=== PATIENT | female | born 1940 | race Caucasian/White ===

== ENCOUNTER 2018-01-29 15:15 | Inpatient (IN) ==
[2018-01-29] MEDS ORDERED: THIAMINE INJ 100 MG, FOLIC ACID INJ 1 MG, MAGNESIUM SULF INJ 2 GM, MULTIVITAMIN INJ 10 ... IV ONE (17:11)
[2018-01-29] MEDS ORDERED: SODIUM CHLORIDE 0.9% 1,000 ML IV STA (17:11)
[2018-01-29 17:28] LABS: Basophils % 0.1 % (0.0-0.8); Hematocrit 29.9 VOL% (35.7-47.0); Hemoglobin 9.7 GM/DL (12.0-16.0); Immature Granulocytes % 1.2 %; Immature Granulocytes Absolute 0.11 #; Lymphocytes # 0.4 10*3/uL (1.4-4.0); Lymphocytes % 4.6 % (21.3-54.2); Mean Corpuscular HGB Conc 32.4 GM/DL (32-36); Mean Corpuscular Hemoglobin 25 PG (27-34); Mean Corpuscular Volume 76.3 FL (87-102); Mean Platelet Volume 11.3 FL (9.6-12.0); Monocytes # 0.2 10*3/uL (0.11-0.8); Monocytes % 1.7 % (1.7-12.7); Neutrophils # 8.3 10*3/uL (1.4-7.4); Neutrophils % 92.4 % (38.7-73.9); Platelet Count 100 T/CUMM (130-400); Red Blood Count 3.92 MC/CUMM (3.8-5.5)
[2018-01-29 17:38] LABS: INR 1.3; PT Patient Result 13.8 SECS
[2018-01-29 17:50] LABS: Albumin 2.7 G/DL (3.4-5.0); Calcium 8.4 MG/DL (8.5-10.1); Osmolality,Calculated 259.2 MOS/KG (273-304); Potassium 4.2 MMOL/L (3.5-5.1); Total Protein 6.1 G/DL (6.4-8.3)
[2018-01-29 18:13] LABS: Band Neutrophils 1 % (0-10); Lymphocytes 4 % (20-55); Segmented Neutrophils 95 % (50-85); Total Cells Counted 100
[2018-01-29 18:14] LABS: Anisocytosis 1+; Ovalocytes 2+; Poikilocytosis 1+
[2018-01-29 18:15] LABS: Platelet Estimate Adequate; Schistocytes Few
[2018-01-29] MEDS ORDERED: ONDANSETRON 4 MG/2 ML VIAL IV PRN (18:21)
[2018-01-29] MEDS ORDERED: LACTULOSE 20 GM/30 ML UDCUP PO STA (18:24)
[2018-01-29] MEDS ORDERED: GLUCAGON 1 MG VIAL IM PRN (18:28)
[2018-01-29] MEDS ORDERED: DEXTROSE 50% 25 GM/50 ML VIAL IV PRN (18:28)
[2018-01-29] MEDS ORDERED: LACTULOSE 20 GM/30 ML UDCUP ONE (18:38)
[2018-01-29] MEDS ORDERED: ALUM/MAG/SIMETH/LIDO VISC 1:1 30 ML BOTTLE PO ONE (18:42)
[2018-01-29] MEDS ORDERED: MORPHINE 4 MG/1 ML VIAL ONE (18:42)
[2018-01-29] MEDS ORDERED: ASPIRIN 325 MG TABLET ONE (18:42)
[2018-01-29] MEDS ORDERED: traMADol 50 MG TABLET PO PRN (19:20)
[2018-01-29] MEDS: FAMCICLOVIR 250 MG TABLET PO SCH (20:40)
[2018-01-29] MEDS: INSULIN REGULAR 100 UNIT/ML SUBCUT SCH (20:40)
[2018-01-29] MEDS: SPIRONOLACTONE 50 MG TABLET PO SCH (20:40)
[2018-01-29 21:57] LABS: Apearance,Urine CLEAR (Clear); Bacteria,Urine Occasional /HPF (Few); Bilirubin,Urine Negative (Negative); Blood, Urine Negative (Negative); Glucose,Urine (UA) Negative (Negative); Ketones,Urine Negative (Negative); Mucus,Urine Occasional /LPF (Occasional); Nitrite,Urine Negative (Negative); Protein,Urine Negative; RBC,Urine <1 /HPF (0-4); Squamous Epithelial Cell,Urine Occasional /HPF (0-10); Urine Color Yellow (Yellow); Urine Specific Gravity 1.008 (1.001-1.035); WBC,Urine <1 /HPF (0-6)
[2018-01-30 05:42] LABS: Albumin 2.5 G/DL (3.4-5.0); Calcium 8.2 MG/DL (8.5-10.1); Osmolality,Calculated 264.7 MOS/KG (273-304); Potassium 4.7 MMOL/L (3.5-5.1); Total Protein 5.3 G/DL (6.4-8.3)
[2018-01-30 05:45] LABS: Basophils % 0.1 % (0.0-0.8); Hematocrit 28.6 VOL% (35.7-47.0); Hemoglobin 9.2 GM/DL (12.0-16.0); Immature Granulocytes % 0.8 %; Immature Granulocytes Absolute 0.07 #; Lymphocytes # 0.7 10*3/uL (1.4-4.0); Lymphocytes % 8.6 % (21.3-54.2); Mean Corpuscular HGB Conc 32.2 GM/DL (32-36); Mean Corpuscular Hemoglobin 25 PG (27-34); Mean Corpuscular Volume 78.6 FL (87-102); Mean Platelet Volume 11.7 FL (9.6-12.0); Monocytes # 0.7 10*3/uL (0.11-0.8); Monocytes % 8.2 % (1.7-12.7); Neutrophils # 7.1 10*3/uL (1.4-7.4); Neutrophils % 82.3 % (38.7-73.9); Red Blood Count 3.64 MC/CUMM (3.8-5.5); Red Cell Distribution Width 20.7 % (9.3-17.3); White Blood Count 8.6 T/CUMM (4-12)
[2018-01-30 05:54] LABS: Platelet Count 75 T/CUMM (130-400)
[2018-01-30] MEDS: SODIUM CHLORIDE 0.9% 1,000 ML IV SCH ×3 (06:02→19:50)
[2018-01-30 06:08] LABS: Burr Cells Slight; Elliptocytes 1+; Hypochromasia 2+; Macrocytosis 1+
[2018-01-30] MEDS: INSULIN REGULAR 100 UNIT/ML SUBCUT SCH ×4 (07:58→20:46)
[2018-01-30] MEDS: predniSONE 20 MG TABLET PO SCH (08:48)
[2018-01-30] MEDS: SPIRONOLACTONE 50 MG TABLET PO SCH ×2 (08:48→20:40)
[2018-01-30] MEDS: PANTOPRAZOLE 40 MG TABLET PO SCH (08:48)
[2018-01-30] MEDS: FAMCICLOVIR 250 MG TABLET PO SCH ×3 (08:48→20:40)
[2018-01-30] MEDS: LEVOTHYROXINE 75 MCG TABLET PO SCH (08:48)
[2018-01-30] MEDS ORDERED: LACTULOSE 20 GM/30 ML UDCUP PO SCH (09:00)
[2018-01-30] MEDS ORDERED: GABAPENTIN 300 MG CAPSULE PO SCH (09:00)
[2018-01-30] MEDS ORDERED: PANTOPRAZOLE 40 MG TABLET PO SCH (09:00)
[2018-01-30] MEDS: MORPHINE 4 MG/1 ML VIAL IV PRN (19:03)
[2018-01-30] MEDS: LACTULOSE 20 GM/30 ML UDCUP PO SCH (20:40)
[2018-01-31 05:04] LABS: Basophils % 0.1 % (0.0-0.8); Eosinophils % 0.1 % (0.00-10.9); Hematocrit 22.6 VOL% (35.7-47.0); Immature Granulocytes % 1.1 %; Immature Granulocytes Absolute 0.19 #; Lymphocytes # 1.4 10*3/uL (1.4-4.0); Lymphocytes % 8.2 % (21.3-54.2); Mean Corpuscular HGB Conc 31.4 GM/DL (32-36); Mean Corpuscular Hemoglobin 25 PG (27-34); Mean Platelet Volume 11.4 FL (9.6-12.0); Monocytes % 11.3 % (1.7-12.7); Neutrophils # 13.9 10*3/uL (1.4-7.4); Neutrophils % 79.2 % (38.7-73.9); Platelet Count 87 T/CUMM (130-400); Red Blood Count 2.86 MC/CUMM (3.8-5.5); Red Cell Distribution Width 21.4 % (9.3-17.3); White Blood Count 17.6 T/CUMM (4-12)
[2018-01-31 05:08] LABS: Hemoglobin 7.1 GM/DL (12.0-16.0)
[2018-01-31 05:24] LABS: Microcytosis 1+
[2018-01-31 05:25] LABS: Anisocytosis 1+; Hypochromasia 1+; Ovalocytes Few; Platelet Estimate Decreased; Polychromasia Slight
[2018-01-31 05:45] LABS: Bilirubin,Total 2.3 MG/DL (0.2-1.0); Calcium 7.5 MG/DL (8.5-10.1); Osmolality,Calculated 268.5 MOS/KG (273-304); Potassium 5.3 MMOL/L (3.5-5.1); Total Protein 4.4 G/DL (6.4-8.3)
[2018-01-31] MEDS: LEVOTHYROXINE 75 MCG TABLET PO SCH (06:10)
[2018-01-31] MEDS ORDERED: SODIUM CHLORIDE 0.9% 1,000 ML IV PRN ×2 (06:53→09:29)
[2018-01-31] MEDS: INSULIN REGULAR 100 UNIT/ML SUBCUT SCH ×4 (07:46→21:01)
[2018-01-31] MEDS: predniSONE 20 MG TABLET PO SCH (08:43)
[2018-01-31] MEDS: PANTOPRAZOLE 40 MG TABLET PO SCH (08:43)
[2018-01-31] MEDS: FAMCICLOVIR 250 MG TABLET PO SCH ×3 (08:43→20:46)
[2018-01-31] MEDS: LACTULOSE 20 GM/30 ML UDCUP PO SCH ×2 (08:44→20:46)
[2018-01-31] MEDS: LIDOCAINE 5% PATCH TRANSDERM SCH (08:44)
[2018-01-31] MEDS ORDERED: ETOMIDATE 20 MG/10 ML VIAL IV ONE (10:44)
[2018-01-31] MEDS ORDERED: LIDOCAINE 1% 5 ML VIAL ONE (10:44)
[2018-01-31] MEDS ORDERED: fentaNYL 100 MCG/2 ML VIAL IV ONE (11:25)
[2018-01-31] MEDS ORDERED: fentaNYL 100 MCG/2 ML VIAL ONE (11:30)
[2018-01-31] MEDS: LACTULOSE 160 GM/240 ML BOTTLE RECTAL ONE ×2 (12:05→15:50)
[2018-01-31 13:10] LABS: Hemoglobin 7.6 GM/DL (12.0-16.0)
[2018-01-31] MEDS: SODIUM CHLORIDE 0.9% 1,000 ML IV SCH (13:15)
[2018-01-31] MEDS: PANTOPRAZOLE 40 MG VIAL IV SCH ×2 (13:15→20:46)
[2018-01-31] MEDS: LEVOFLOXACIN INJ 500 MG in PREMIX 1 EACH IV SCH (13:21)
[2018-01-31] MEDS: OCTREOTIDE 500 MCG in SODIUM CHLORIDE 0.9% 99 ML IV SCH (13:45)
[2018-01-31] MEDS: MORPHINE 4 MG/1 ML VIAL IV PRN (21:10)
[2018-01-31 23:06] LABS: Hematocrit 31.7 VOL% (35.7-47.0); Hemoglobin 10.3 GM/DL (12.0-16.0)
[2018-02-01] MEDS: OCTREOTIDE 500 MCG in SODIUM CHLORIDE 0.9% 99 ML IV SCH ×3 (00:45→19:23)
[2018-02-01] MEDS: SODIUM CHLORIDE 0.9% 1,000 ML IV SCH ×2 (03:00→12:30)
[2018-02-01] MEDS: MORPHINE 4 MG/1 ML VIAL IV PRN (03:13)
[2018-02-01 04:45] LABS: Basophils # 0.1 10*3/uL (0.0-0.2); Basophils % 0.4 % (0.0-0.8); Eosinophils % 0.1 % (0.00-10.9); Hematocrit 32.4 VOL% (35.7-47.0); Hemoglobin 10.4 GM/DL (12.0-16.0); Immature Granulocytes % 4.7 %; Immature Granulocytes Absolute 0.97 #; Lymphocytes # 2.6 10*3/uL (1.4-4.0); Lymphocytes % 12.4 % (21.3-54.2); Mean Corpuscular HGB Conc 32.1 GM/DL (32-36); Mean Corpuscular Hemoglobin 27 PG (27-34); Mean Corpuscular Volume 83.1 FL (87-102); Mean Platelet Volume 11.7 FL (9.6-12.0); Monocytes # 2.1 10*3/uL (0.11-0.8); Monocytes % 10.1 % (1.7-12.7); NRBC # 0.06 10*3/uL; Neutrophils # 14.8 10*3/uL (1.4-7.4); Neutrophils % 72.3 % (38.7-73.9); Platelet Count 102 T/CUMM (130-400); Red Cell Distribution Width 19.9 % (9.3-17.3); White Blood Count 20.6 T/CUMM (4-12)
[2018-02-01 05:17] LABS: Albumin 2.4 G/DL (3.4-5.0); Bilirubin,Total 3.7 MG/DL (0.2-1.0); Calcium 8.1 MG/DL (8.5-10.1); Osmolality,Calculated 277.2 MOS/KG (273-304); Potassium 4.8 MMOL/L (3.5-5.1); Total Protein 5.1 G/DL (6.4-8.3)
[2018-02-01] MEDS: LEVOTHYROXINE 75 MCG TABLET PO SCH (06:38)
[2018-02-01 07:12] LABS: Acanthocytes Few; Band Neutrophils 7 % (0-10); Elliptocytes 1+; Hypochromasia 1+; Lymphocytes 8 % (20-55); Platelet Estimate Decreased; Segmented Neutrophils 81 % (50-85); Total Cells Counted 100
[2018-02-01] MEDS: INSULIN REGULAR 100 UNIT/ML SUBCUT SCH ×4 (08:13→20:30)
[2018-02-01] MEDS: LACTULOSE 20 GM/30 ML UDCUP PO SCH ×2 (08:45→20:31)
[2018-02-01] MEDS: FAMCICLOVIR 250 MG TABLET PO SCH ×3 (09:00→20:31)
[2018-02-01] MEDS: predniSONE 20 MG TABLET PO SCH (09:00)
[2018-02-01] MEDS: LIDOCAINE 5% PATCH TRANSDERM SCH (09:01)
[2018-02-01] MEDS: PANTOPRAZOLE 40 MG VIAL IV SCH ×2 (09:09→20:28)
[2018-02-01] MEDS ORDERED: LACTULOSE 160 GM/240 ML BOTTLE RECTAL PRN (09:24)
[2018-02-01] MEDS ORDERED: SODIUM CHLORIDE 0.9% 500 ML IV ONE (09:26)
[2018-02-01 09:52] LABS: Basophils # 0.1 10*3/uL (0.0-0.2); Basophils % 0.5 % (0.0-0.8); Eosinophils # 0.1 10*3/uL (0.0-0.87); Eosinophils % 0.4 % (0.00-10.9); Hemoglobin 11.3 GM/DL (12.0-16.0); Immature Granulocytes % 5.7 %; Immature Granulocytes Absolute 1.16 #; Lymphocytes # 2.7 10*3/uL (1.4-4.0); Lymphocytes % 13.2 % (21.3-54.2); Mean Corpuscular HGB Conc 33.2 GM/DL (32-36); Mean Corpuscular Hemoglobin 27 PG (27-34); Mean Corpuscular Volume 81.3 FL (87-102); Mean Platelet Volume 12.1 FL (9.6-12.0); Monocytes % 9.7 % (1.7-12.7); NRBC # 0.15 10*3/uL; Neutrophils # 14.4 10*3/uL (1.4-7.4); Neutrophils % 70.5 % (38.7-73.9); Platelet Count 108 T/CUMM (130-400); Red Blood Count 4.18 MC/CUMM (3.8-5.5); White Blood Count 20.5 T/CUMM (4-12)
[2018-02-01 10:53] LABS: Burr Cells 2+; Eosinophils 1 % (0-10); Lymphocytes 8 % (20-55); Macrocytosis 1+; Nucleated Red Blood Cells 2 (0-5); Polychromasia Slight; Segmented Neutrophils 84 % (50-85); Target Cells 1+; Total Cells Counted 100
[2018-02-01 10:54] LABS: Elliptocytes Few; Platelet Estimate Decreased
[2018-02-01 12:39] LABS: Hematocrit 34.1 VOL% (35.7-47.0); Hemoglobin 10.9 GM/DL (12.0-16.0)
[2018-02-01] MEDS: LEVOFLOXACIN INJ 500 MG in PREMIX 1 EACH IV SCH (13:11)
[2018-02-01] MEDS: PROPRANOLOL 10 MG TABLET PO SCH ×2 (14:36→20:31)
[2018-02-01 15:06] LABS: Apearance,Urine CLEAR (Clear); Bilirubin,Urine Negative (Negative); Blood, Urine Negative (Negative); Glucose,Urine (UA) Negative (Negative); Ketones,Urine Negative (Negative); Mucus,Urine Few /LPF (Occasional); Nitrite,Urine Negative (Negative); Protein,Urine Negative; RBC,Urine 2 /HPF (0-4); Squamous Epithelial Cell,Urine Occasional /HPF (0-10); Urine Color Amber (Yellow); Urine Specific Gravity 1.028 (1.001-1.035); WBC,Urine 2 /HPF (0-6)
[2018-02-01] MEDS: METOPROLOL TARTRATE 5 MG/5 ML VIAL IV SCH (17:08)
[2018-02-01] MEDS: LACTULOSE 160 GM/240 ML BOTTLE RECTAL SCH (17:22)
[2018-02-01 20:31] LABS: Hematocrit 30.6 VOL% (35.7-47.0); Hemoglobin 10.5 GM/DL (12.0-16.0)
[2018-02-02] MEDS: METOPROLOL TARTRATE 5 MG/5 ML VIAL IV SCH ×4 (01:21→17:04)
[2018-02-02] MEDS: LACTULOSE 160 GM/240 ML BOTTLE RECTAL SCH ×5 (01:21→23:13)
[2018-02-02] MEDS: SODIUM CHLORIDE 0.9% 1,000 ML IV SCH ×3 (03:48→20:33)
[2018-02-02] MEDS: LEVOTHYROXINE 75 MCG TABLET PO SCH (05:57)
[2018-02-02 06:34] LABS: Basophils % 0.3 % (0.0-0.8); Eosinophils # 0.1 10*3/uL (0.0-0.87); Eosinophils % 0.8 % (0.00-10.9); Hematocrit 28.9 VOL% (35.7-47.0); Hemoglobin 9.6 GM/DL (12.0-16.0); Immature Granulocytes Absolute 0.47 #; Lymphocytes # 1.5 10*3/uL (1.4-4.0); Lymphocytes % 12.7 % (21.3-54.2); Mean Corpuscular HGB Conc 33.2 GM/DL (32-36); Mean Corpuscular Hemoglobin 27 PG (27-34); Mean Corpuscular Volume 81.2 FL (87-102); Monocytes # 0.9 10*3/uL (0.11-0.8); Monocytes % 7.8 % (1.7-12.7); NRBC # 0.08 10*3/uL; Neutrophils # 8.8 10*3/uL (1.4-7.4); Neutrophils % 74.4 % (38.7-73.9); Platelet Count 59 T/CUMM (130-400); Red Blood Count 3.56 MC/CUMM (3.8-5.5); Red Cell Distribution Width 19.8 % (9.3-17.3); White Blood Count 11.8 T/CUMM (4-12)
[2018-02-02 06:55] LABS: Albumin 2.2 G/DL (3.4-5.0); Bilirubin,Total 3.3 MG/DL (0.2-1.0); Calcium 7.8 MG/DL (8.5-10.1); Osmolality,Calculated 281.8 MOS/KG (273-304); Potassium 3.8 MMOL/L (3.5-5.1); Total Protein 4.5 G/DL (6.4-8.3)
[2018-02-02] MEDS: INSULIN REGULAR 100 UNIT/ML SUBCUT SCH ×4 (08:27→21:06)
[2018-02-02] MEDS: PANTOPRAZOLE 40 MG VIAL IV SCH ×2 (08:55→20:31)
[2018-02-02] MEDS: OCTREOTIDE 500 MCG in SODIUM CHLORIDE 0.9% 99 ML IV SCH (08:55)
[2018-02-02] MEDS: LIDOCAINE 5% PATCH TRANSDERM SCH (08:55)
[2018-02-02] MEDS: FAMCICLOVIR 250 MG TABLET PO SCH ×3 (09:07→20:26)
[2018-02-02] MEDS: LACTULOSE 20 GM/30 ML UDCUP PO SCH ×2 (09:07→21:05)
[2018-02-02] MEDS: PROPRANOLOL 10 MG TABLET PO SCH ×3 (09:08→20:29)
[2018-02-02] MEDS: predniSONE 20 MG TABLET PO SCH (09:08)
[2018-02-02 11:21] LABS: Elliptocytes 2+; Hypochromasia 1+; Macrocytosis 1+; Polychromasia Slight
[2018-02-02] MEDS: LEVOFLOXACIN INJ 500 MG in PREMIX 1 EACH IV SCH (12:06)
[2018-02-02 13:08] LABS: Hematocrit 27.7 VOL% (35.7-47.0); Hemoglobin 9.1 GM/DL (12.0-16.0)
[2018-02-02 21:12] LABS: Hematocrit 29.2 VOL% (35.7-47.0); Hemoglobin 9.5 GM/DL (12.0-16.0)
[2018-02-03] MEDS: METOPROLOL TARTRATE 5 MG/5 ML VIAL IV SCH ×5 (00:53→23:45)
[2018-02-03] MEDS: OCTREOTIDE 500 MCG in SODIUM CHLORIDE 0.9% 99 ML IV SCH ×3 (00:58→08:42)
[2018-02-03 05:08] LABS: Basophils % 0.2 % (0.0-0.8); Eosinophils # 0.2 10*3/uL (0.0-0.87); Eosinophils % 1.7 % (0.00-10.9); Hematocrit 27.8 VOL% (35.7-47.0); Hemoglobin 9.2 GM/DL (12.0-16.0); Immature Granulocytes Absolute 0.31 #; Lymphocytes # 1.6 10*3/uL (1.4-4.0); Lymphocytes % 15.1 % (21.3-54.2); Mean Corpuscular HGB Conc 33.1 GM/DL (32-36); Mean Corpuscular Hemoglobin 27 PG (27-34); Mean Corpuscular Volume 81.8 FL (87-102); Mean Platelet Volume 11.7 FL (9.6-12.0); Monocytes # 0.8 10*3/uL (0.11-0.8); Monocytes % 7.7 % (1.7-12.7); NRBC # 0.03 10*3/uL; Neutrophils # 7.5 10*3/uL (1.4-7.4); Neutrophils % 72.3 % (38.7-73.9); Red Cell Distribution Width 20.3 % (9.3-17.3); White Blood Count 10.3 T/CUMM (4-12)
[2018-02-03 05:12] LABS: Platelet Count 67 T/CUMM (130-400)
[2018-02-03 05:30] LABS: Band Neutrophils 2 % (0-10); Eosinophils 1 % (0-10); Giant Platelets Few; Hypochromasia 1+; Lymphocytes 11 % (20-55); Ovalocytes Slight; Platelet Estimate Decreased; Segmented Neutrophils 81 % (50-85); Total Cells Counted 100
[2018-02-03 05:31] LABS: Macrocytosis Slight; Polychromasia Slight
[2018-02-03] MEDS: LACTULOSE 160 GM/240 ML BOTTLE RECTAL SCH ×2 (05:43→11:02)
[2018-02-03] MEDS: SODIUM CHLORIDE 0.9% 1,000 ML IV SCH ×3 (05:45→16:16)
[2018-02-03 05:50] LABS: Bilirubin,Direct 1.17 MG/DL (0.0-0.20); Bilirubin,Indirect 1.4 MG/DL (0.0-1.0); Bilirubin,Total 2.6 MG/DL (0.2-1.0); Calcium 7.6 MG/DL (8.5-10.1); Osmolality,Calculated 288.3 MOS/KG (273-304); Potassium 3.8 MMOL/L (3.5-5.1); Total Protein 4.3 G/DL (6.4-8.3)
[2018-02-03] MEDS: LEVOTHYROXINE 75 MCG TABLET PO SCH (05:56)
[2018-02-03] MEDS: INSULIN REGULAR 100 UNIT/ML SUBCUT SCH ×4 (08:00→20:43)
[2018-02-03] MEDS: FAMCICLOVIR 250 MG TABLET PO SCH ×3 (08:37→20:33)
[2018-02-03] MEDS: PROPRANOLOL 10 MG TABLET PO SCH ×3 (08:37→20:58)
[2018-02-03] MEDS: predniSONE 20 MG TABLET PO SCH (08:37)
[2018-02-03] MEDS: LACTULOSE 20 GM/30 ML UDCUP PO SCH ×2 (08:38→20:32)
[2018-02-03] MEDS: PANTOPRAZOLE 40 MG VIAL IV SCH ×2 (08:45→20:32)
[2018-02-03] MEDS: LIDOCAINE 5% PATCH TRANSDERM SCH (08:47)
[2018-02-03] MEDS: LEVOFLOXACIN INJ 500 MG in PREMIX 1 EACH IV SCH (12:17)
[2018-02-03 13:14] LABS: Hematocrit 28.8 VOL% (35.7-47.0); Hemoglobin 9.3 GM/DL (12.0-16.0)
[2018-02-03 22:05] LABS: Hematocrit 30.3 VOL% (35.7-47.0); Hemoglobin 9.9 GM/DL (12.0-16.0)
[2018-02-04] MEDS: LEVOTHYROXINE 75 MCG TABLET PO SCH (06:05)
[2018-02-04] MEDS: SODIUM CHLORIDE 0.9% 1,000 ML IV SCH ×2 (06:05→21:20)
[2018-02-04] MEDS: METOPROLOL TARTRATE 5 MG/5 ML VIAL IV SCH ×3 (06:05→16:59)
[2018-02-04 06:57] LABS: Basophils % 0.2 % (0.0-0.8); Eosinophils # 0.1 10*3/uL (0.0-0.87); Hematocrit 27.9 VOL% (35.7-47.0); Immature Granulocytes % 2.2 %; Immature Granulocytes Absolute 0.28 #; Lymphocytes # 1.6 10*3/uL (1.4-4.0); Lymphocytes % 11.9 % (21.3-54.2); Mean Corpuscular HGB Conc 32.3 GM/DL (32-36); Mean Corpuscular Hemoglobin 27 PG (27-34); Mean Corpuscular Volume 84.5 FL (87-102); Mean Platelet Volume 11.5 FL (9.6-12.0); Monocytes # 1.2 10*3/uL (0.11-0.8); Monocytes % 9.1 % (1.7-12.7); Neutrophils # 9.8 10*3/uL (1.4-7.4); Neutrophils % 75.6 % (38.7-73.9); Platelet Count 80 T/CUMM (130-400); Red Cell Distribution Width 21.2 % (9.3-17.3)
[2018-02-04 07:18] LABS: Bilirubin,Direct 1.27 MG/DL (0.0-0.20); Bilirubin,Indirect 1.7 MG/DL (0.0-1.0); Calcium 7.4 MG/DL (8.5-10.1); Hypochromasia 1+; Osmolality,Calculated 281.8 MOS/KG (273-304); Ovalocytes Slight; Platelet Estimate Decreased; Potassium 4.1 MMOL/L (3.5-5.1); Total Protein 4.3 G/DL (6.4-8.3)
[2018-02-04 07:19] LABS: Macrocytosis Slight
[2018-02-04] MEDS: INSULIN REGULAR 100 UNIT/ML SUBCUT SCH ×2 (07:57→13:52)
[2018-02-04] MEDS: PROPRANOLOL 10 MG TABLET PO SCH ×2 (09:31→14:03)
[2018-02-04] MEDS: FAMCICLOVIR 250 MG TABLET PO SCH ×3 (09:37→21:19)
[2018-02-04] MEDS: LACTULOSE 20 GM/30 ML UDCUP PO SCH ×3 (09:37→21:19)
[2018-02-04] MEDS: PANTOPRAZOLE 40 MG VIAL IV SCH ×2 (09:38→21:19)
[2018-02-04] MEDS: LIDOCAINE 5% PATCH TRANSDERM SCH (09:38)
[2018-02-04] MEDS: predniSONE 20 MG TABLET PO SCH (09:38)
[2018-02-04] MEDS: LEVOFLOXACIN INJ 500 MG in PREMIX 1 EACH IV SCH (15:26)
[2018-02-04] MEDS ORDERED: TUBERCULIN SKIN TEST 0.1 ML SYRINGE INTRADERM ONE ×2 (15:37→18:30)
[2018-02-05 07:41] LABS: Basophils % 0.1 % (0.0-0.8); Eosinophils % 0.2 % (0.00-10.9); Hematocrit 31.1 VOL% (35.7-47.0); Hemoglobin 10.3 GM/DL (12.0-16.0); Immature Granulocytes % 1.7 %; Immature Granulocytes Absolute 0.28 #; Lymphocytes # 1.5 10*3/uL (1.4-4.0); Lymphocytes % 9.1 % (21.3-54.2); Mean Corpuscular HGB Conc 33.1 GM/DL (32-36); Mean Corpuscular Hemoglobin 27 PG (27-34); Mean Corpuscular Volume 82.7 FL (87-102); Mean Platelet Volume 10.7 FL (9.6-12.0); Monocytes # 1.4 10*3/uL (0.11-0.8); Monocytes % 8.8 % (1.7-12.7); Neutrophils # 12.9 10*3/uL (1.4-7.4); Neutrophils % 80.1 % (38.7-73.9); Red Blood Count 3.76 MC/CUMM (3.8-5.5); Red Cell Distribution Width 21.4 % (9.3-17.3); White Blood Count 16.2 T/CUMM (4-12)
[2018-02-05 07:51] LABS: Platelet Count 97 T/CUMM (130-400)
[2018-02-05] MEDS: LEVOTHYROXINE 75 MCG TABLET PO SCH ×2 (07:59→11:14)
[2018-02-05] MEDS: SODIUM CHLORIDE 0.9% 1,000 ML IV SCH ×2 (08:00→22:25)
[2018-02-05] MEDS: LACTULOSE 20 GM/30 ML UDCUP PO SCH ×4 (08:00→22:26)
[2018-02-05] MEDS: FAMCICLOVIR 250 MG TABLET PO SCH ×4 (08:00→22:26)
[2018-02-05] MEDS: LIDOCAINE 5% PATCH TRANSDERM SCH ×2 (08:00→11:15)
[2018-02-05] MEDS: predniSONE 20 MG TABLET PO SCH ×2 (08:00→11:14)
[2018-02-05] MEDS: PANTOPRAZOLE 40 MG VIAL IV SCH ×3 (08:01→22:21)
[2018-02-05 08:07] LABS: Calcium 7.9 MG/DL (8.5-10.1); Osmolality,Calculated 283.8 MOS/KG (273-304); Potassium 3.8 MMOL/L (3.5-5.1)
[2018-02-05 08:44] LABS: Elliptocytes 1+
[2018-02-05 08:45] LABS: Anisocytosis 1+; Platelet Estimate Decreased; Schistocytes Few
[2018-02-05 08:48] LABS: Polychromasia 1+
[2018-02-05 09:46] LABS: Acanthocytes Few
[2018-02-05] MEDS: LEVOFLOXACIN INJ 500 MG in PREMIX 1 EACH IV SCH (12:41)
[2018-02-05] MEDS ORDERED: ONDANSETRON ODT 4 MG TABLET PO PRN (18:02)
[2018-02-06] MEDS: LEVOTHYROXINE 75 MCG TABLET PO SCH (05:53)
[2018-02-06 07:02] LABS: Basophils # 0.1 10*3/uL (0.0-0.2); Basophils % 0.2 % (0.0-0.8); Hematocrit 33.5 VOL% (35.7-47.0); Immature Granulocytes % 2.3 %; Immature Granulocytes Absolute 0.61 #; Lymphocytes # 1.6 10*3/uL (1.4-4.0); Lymphocytes % 6.1 % (21.3-54.2); Mean Corpuscular HGB Conc 32.8 GM/DL (32-36); Mean Corpuscular Hemoglobin 27 PG (27-34); Mean Corpuscular Volume 82.3 FL (87-102); Mean Platelet Volume 11.2 FL (9.6-12.0); Monocytes # 1.8 10*3/uL (0.11-0.8); Monocytes % 7.1 % (1.7-12.7); Neutrophils % 84.3 % (38.7-73.9); Platelet Count 72 T/CUMM (130-400); Red Blood Count 4.07 MC/CUMM (3.8-5.5); Red Cell Distribution Width 21.2 % (9.3-17.3); White Blood Count 26.1 T/CUMM (4-12)
[2018-02-06 07:24] LABS: Hypochromasia 1+; Ovalocytes Slight; Platelet Estimate Decreased
[2018-02-06 07:25] LABS: Macrocytosis Slight
[2018-02-06 07:28] LABS: Albumin 2.3 G/DL (3.4-5.0); Calcium 8.1 MG/DL (8.5-10.1); Osmolality,Calculated 278.4 MOS/KG (273-304)
[2018-02-06] MEDS: PANTOPRAZOLE 40 MG VIAL IV SCH ×2 (09:56→21:37)
[2018-02-06] MEDS: predniSONE 20 MG TABLET PO SCH (09:58)
[2018-02-06] MEDS: LACTULOSE 20 GM/30 ML UDCUP PO SCH ×3 (09:58→21:37)
[2018-02-06] MEDS: FAMCICLOVIR 250 MG TABLET PO SCH ×3 (09:58→21:37)
[2018-02-06] MEDS: LIDOCAINE 5% PATCH TRANSDERM SCH (09:59)
[2018-02-06] MEDS: SODIUM CHLORIDE 0.9% 1,000 ML IV SCH ×2 (11:45)
[2018-02-06] MEDS: LEVOFLOXACIN INJ 500 MG in PREMIX 1 EACH IV SCH (14:35)
[2018-02-06] MEDS ORDERED: HYDROcod/ACETAMIN 7.5-325 MG/15 ML UDCUP PO PRN (23:21)
[2018-02-06] MEDS ORDERED: traMADol 50 MG TABLET PO PRN (23:24)
[2018-02-07 07:03] LABS: Basophils # 0.1 10*3/uL (0.0-0.2); Basophils % 0.2 % (0.0-0.8); Hematocrit 34.6 VOL% (35.7-47.0); Hemoglobin 11.5 GM/DL (12.0-16.0); Immature Granulocytes Absolute 0.55 #; Lymphocytes # 1.6 10*3/uL (1.4-4.0); Lymphocytes % 5.5 % (21.3-54.2); Mean Corpuscular HGB Conc 33.2 GM/DL (32-36); Mean Corpuscular Hemoglobin 27 PG (27-34); Mean Platelet Volume 11.9 FL (9.6-12.0); Monocytes # 1.9 10*3/uL (0.11-0.8); Monocytes % 6.7 % (1.7-12.7); Neutrophils % 85.6 % (38.7-73.9); Platelet Count 71 T/CUMM (130-400); Red Blood Count 4.22 MC/CUMM (3.8-5.5); Red Cell Distribution Width 21.7 % (9.3-17.3)
[2018-02-07 07:30] LABS: Albumin 2.3 G/DL (3.4-5.0); Bilirubin,Total 2.9 MG/DL (0.2-1.0); Calcium 8.1 MG/DL (8.5-10.1); Osmolality,Calculated 279.4 MOS/KG (273-304); Potassium 4.2 MMOL/L (3.5-5.1); Total Protein 4.9 G/DL (6.4-8.3)
[2018-02-07 07:38] LABS: Burr Cells Slight; Giant Platelets Few; Hypochromasia 1+; Lymphocytes 3 % (20-55); Ovalocytes Slight; Platelet Estimate Decreased; Segmented Neutrophils 94 % (50-85); Total Cells Counted 100
[2018-02-07 07:39] LABS: Macrocytosis Slight
[2018-02-07] MEDS: SODIUM CHLORIDE 0.9% 1,000 ML IV SCH (08:54)
[2018-02-07] MEDS: LEVOTHYROXINE 75 MCG TABLET PO SCH (09:26)
[2018-02-07] MEDS: FAMCICLOVIR 250 MG TABLET PO SCH ×2 (09:26→14:12)
[2018-02-07] MEDS: LACTULOSE 20 GM/30 ML UDCUP PO SCH ×2 (09:26→14:12)
[2018-02-07] MEDS: predniSONE 20 MG TABLET PO SCH (09:26)
[2018-02-07] MEDS: LIDOCAINE 5% PATCH TRANSDERM SCH (09:37)
[2018-02-07] MEDS: fentaNYL 25 MCG/HR PATCH TRANSDERM SCH ×3 (09:37→15:34)
[2018-02-07] MEDS: PANTOPRAZOLE 40 MG VIAL IV SCH (09:37)
[2018-02-07 12:34] VITALS: BP 101/64
[2018-02-07] MEDS: LEVOFLOXACIN INJ 500 MG in PREMIX 1 EACH IV SCH (13:08)
[2018-02-07] MEDS ORDERED: HYDROmorphone PCA 30 MG/30 ML SYRINGE IV SCH (14:30)
[2018-02-07] MEDS ORDERED: MORPHINE 4 MG/1 ML VIAL IV PRN (14:46)
[2018-02-07] MEDS ORDERED: LORazepam 2 MG/1 ML VIAL IV PRN (14:47)
[2018-02-07] MEDS ORDERED: MORPHINE PCA 30 MG/30 ML SYRINGE IV SCH (16:00)
== END 2018-02-07 18:02 | disposition expired | DRG 441 ==
LOC: N.ED 15:15 → N.EDINP 15:15 → N.2E 18:57 → SUATTDRO 01-31 09:42 → N.CC 01-31 11:51 → N.5E 02-03 15:02
PROVIDERS: ADMIT Family Medicine; ATTEND Internal Medicine
PROC: EGDWEBL (ICD-10-PCS; 2018-01-31 09:35)